=== PATIENT | male | born 1965 | race Caucasian/White ===

== ENCOUNTER 2019-10-27 14:33 | Emergency (ER) | payer OTHER ==
[2019-10-27] MEDS ORDERED: MORPHINE SULFATE 4 MG/ML SYRINGE IM STA (16:12)
--- NOTE | 2019-10-27 16:42 | XR ---
EXAMINATION TYPE: XR pelvis AP view DATE OF EXAM: 10/27/2019 COMPARISON: NONE HISTORY: Left side pain TECHNIQUE: Single view FINDINGS: The pelvic ring is intact. Proximal femurs and hip joints are intact. Sacroiliac joints jenny ear normal. IMPRESSION: Normal pelvis.
--- NOTE | 2019-10-27 16:52 | XR ---
EXAMINATION TYPE: XR lumbar spine 2 or 3V DATE OF EXAM: 10/27/2019 COMPARISON: NONE HISTORY: Back pain TECHNIQUE: 3 views FINDINGS: Lumbar vertebra have fairly normal alignment. There is disc space narrowing at L5-S1. Poste rior elements are intact. Sacroiliac joints appear intact. There is no evidence of a fracture. IMPRESSION: Spondylosis at L5-S1. No fracture.
[2019-10-27] MEDS ORDERED: ACET/COD 300 MG/30 MG STARTER PACK 6 TAB BTL PO STA (16:59)
--- NOTE | 2019-10-27 17:05 | ED ---
Back Pain HPI - General Chief Complaint: Back Pain/Injury Stated Complaint: fall/back pain Time Seen by Provider: 10/27/19 15:55 Source: patient Limitations: no limitations - History of Present Illness Initial Comments: 54yo male presents today for chief complaint of right-sided low back pain after falling week ago. Patient states he fell down the last step when walking approximately one week ago he states it is mostly in his right side lower back. Denies syncopal episode stating he just lost his footing. Patient states it radiates down the posterior buttock towards the knee. Patient denies any leg weakness or loss sensation loss of bowel bladder control urinary retention erectile dysfunction. Patient denies fever, chronic steroid use, history of IVDU. Patient states he is able to ambulate. Patient states he felt the pain should go away by now. Patient admits to history of chronic bck pain. Patient denies any other areas of injury, denies upper back pain, abdominal pain, head injury, injury to UE, leg or neck. remaining ROS (-). Upon arrival patient ambulatory well appearing. - Related Data Previous Rx's Medication Instructions Recorded HYDROcodone/APAP 7.5-325MG [[place] 1 tab PO Q6HR PRN 3 Days #12 tab 10/27/19 7.5-325] predniSONE 50 mg PO DAILY 4 Days #4 tab 10/27/19 Allergies Allergy/AdvReac Type Severity Reaction Status Date / Time No Known Allergies Allergy Verified 10/27/19 15:23 Review of Systems ROS Statement: Those systems with pertinent positive or pertinent negative responses have been documented in the HPI. ROS Other: All systems not noted in ROS Statement are negative. Past Medical History Past Medical History: Chest Pain / Angina, Hypertension, Myocardial Infarction ([place]) History of Any Multi-Drug Resistant Organisms: None Reported Past Surgical History: Heart Catheterization With Stent Past Psychological History: No Psychological Hx Reported Smoking Status: Current every day smoker Past Alcohol Use History: None Reported Past Drug Use History: None Reported General Exam - General Exam Comments Initial Comments: General: The patient is awake and alert, in no distress, and does not appear acutely ill. Eye: +3 mm pupils are equal, round and reactive to light, extra-ocular movements are intact. No nystagmus. There is normal conjunctiva bilaterally. No signs of icterus. No photophobia Ears, nose, mouth and throat: There are moist mucous membranes and no oral lesions. Oropharynx was not erythematous there is no tonsillar enlargement exudates or lesions. Uvula midline. Tympanic membranes are not erythematous or is no effusions bulging or retraction. No tenderness to palpation of the mastoid. No anterior cervical lymphadenopathy. Rhinorrhea, clear and bilateral nares. No tripoding, no drooling. Neck: The neck is supple, there is no tenderness or JVD. No nuchal rigidity negative Brudzinski and Kernig Cardiovascular: There is a regular rate and rhythm. No murmur, rub or gallop is appreciated. Respiratory: Lungs are clear to auscultation, respirations are non-labored, breath sounds are equal. No wheezes, stridor, rales, or rhonchi. No retractions or abdominal breathing. Gastrointestinal: Soft, non-distended, non-tender abdomen without masses or organomegaly noted. There is no rebound or guarding present. Bowel sounds are unremarkable. Musculoskeletal: Normal inspection cervical, thoracic or lumbar spine. no ecchymosis, swelling. no midline back pain, right sided paravertebral. Normal ROM o fthe LE b/l. (-) SLR. Strength 5/5 of the LE b/l. Sensation intact of the LE b/l including saddle region. Radial and DP pulses equal bilaterally 2+. Neurological: A&O x 3. CN II-XII intact, There are no obvious motor or sensory deficits. Coordination appears grossly intact. Speech appears normal, no muffling. Skin: Skin is warm and dry and no rashes or lesions are noted. No extremity edema Psychiatric: Cooperative Limitations: no limitations Course Vital Signs 10/27/19 10/27/19 15:20 17:20 Temperature 98.0 F 98 F Pulse Rate 74 75 Respiratory 16 19 Rate Blood Pressure 186/104 168/89 O2 Sat by Pulse 97 100 Oximetry Medical Decision Making - Medical Decision Making 54yo presenting for fall back pain. No sxs of cauda equina on history taking. PE revealed paravertebral tenderness. No midline. no neurological deficits. imaging studies (-). Patient ambulatory I feel he is stable for d/c with PCP f/u and instruction to apply heat, take OTC pain medications. Return paramters discussed and patient was discharged appearing well. Disposition Clinical Impression: Low back pain, Fall, Radiculopathy Disposition: HOME SELF-CARE Condition: Good Instructions (If sedation given, give patient instructions): Lumbar Radiculopathy (ED) Additional Instructions: Please use medication as discussed. Please follow-up with family doctor in the next 2 days, follow-up with Dr. Montiel if pain is persistent. Dont take ibuprofen, advil, or other NSAIDs while taking the steroid. Do not take Tylenol #3 while taking the norco please as discussed. Please return to emergency room if the symptoms increase or worsen or for any other concerns-urine retention, loss of bowel or bladder control, loss of sensation of the legs or weakness. Prescriptions: HYDROcodone/APAP 7.5-325MG [[place] 7.5-325] 1 tab PO Q6HR PRN 3 Days #12 tab PRN Reason: Pain predniSONE 50 mg PO DAILY 4 Days #4 tab Is patient prescribed a controlled substance at d/c from ED?: Yes When asked, does pt state using other controlled substances?: Yes If prescribed controlled substance>3 days was MAPS reviewed?: Prescribed <3 Days If opioid is for acute pain is fill amount 7 days or less?: Yes If Rx opioid, was Start Talking consent form obtained?: Yes Referrals: Nonstaff,Physician [Primary Care Provider] - 1-2 days Kristina Montiel DO [Doctor of Osteopathic Medicine] - 1-2 days Time of Disposition: 17:05
[2019-10-27 17:31] VITALS: BP 168/89; PULSE 75; RESP 19; TEMP 98
== END 2019-10-27 17:20 | disposition home or self-care (01) ==
LOC: EC 14:33
DX: M54.16 Radiculopathy, lumbar region (principal); I25.2 Old myocardial infarction; F17.200 Nicotine dependence, unspecified, uncomplicated; Z95.5 Presence of coronary angioplasty implant and graft; W10.9XXA Fall (on) (from) unspecified stairs and steps, initial encounter; Y93.01 Activity, walking, marching and hiking
CPT/HCPCS: 72100; 72170; 99283; 96372; J2270